=== PATIENT | female | born 1990 | race Caucasian/White ===

== ENCOUNTER 2022-10-22 12:28 | Outpatient (CLI) | payer BC ==
[2022-10-19 13:21] VITALS: BMI 26.5
[2022-10-22] MEDS ORDERED: Lidocaine 1% PF 5 ML VIAL ONE ×2 (12:46→12:49)
[2022-10-22] MEDS ORDERED: Sodium Bicarbonate 2.5 MEQ/5 ML VIAL ONE (12:46)
[2022-10-22] MEDS ORDERED: EPINEPHrine 1 MG/ML AMP ONE (12:52)
== END 2022-10-22 12:29 | disposition home or self-care (01) ==
LOC: CSHRAD 12:28
PROVIDERS: ATTEND Orthopaedic Surgery
DX: M25.551 Pain in right hip (principal); S73.191A Other sprain of right hip, initial encounter
CPT/HCPCS: 27093; J0171